=== PATIENT | female | born 1990 | race Caucasian/White ===

== ENCOUNTER 2016-05-23 08:38 | Emergency (ER) | payer MEDICAID, OTHER ==
[~2016-05-23] VITALS: Ht 160 cm; Wt 77.3 kg
[2016-05-23 08:44] VITALS: BP 111/83; RESP 14; O2SAT 96
--- NOTE | 2016-05-23 09:09 | ED.REPORT ---
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 The tenderness began 2 days ago, then last night she felt a bump beginning to form which has been worsening. The pain radiates up into her nasal passages. She denies any other symptoms at this time. Nursing Notes Stated Complaint: PAINFUL BUMP IN MOUTH Chief Complaint: ENT & Mouth Nursing Notes Reviewed: Yes Allergies: Coded Allergies: No Known Allergies (Unverified Allergy, Unknown, 09/24/14) Scheduled Acyclovir (Acyclovir) 400 Mg Tablet Unknown Dose PO BID Penicillin V Potassium (Penicillin V Potassium) 500 Mg Tablet 500 MG PO QID Scheduled PRN Hydrocodone-Acetaminophen 5-325 mg (Hydrocodone-Acetaminophen 5-325 mg) 1 Each Tablet 1 TABLET PO Q4H PRN PRN For Pain General Time Seen by MD: 09:07 Chief Complaint Mouth pain Hx Obtained From: Patient Arrived By: Walk-in Onset Occurred: 2 days ago Symptom Duration: Since onset Quality: Painful Severity: Current: Moderate Severity: Maximum: Severe Recent Healthcare: No recent doctor visit, No recent hospitalization Similar Sx Previous: Yes Past Medical History Past Medical History 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 Physical Exam Initial Vital Signs Vital Signs (First) Date Time Temp Pulse Resp B/P Pulse Ox O2 Delivery O2 Flow Rate FiO2 05/23/16 08:44 101 14 111/83 96 Room Air 05/23/16 09:39 36.6 Initial VS: Reviewed General/Constitutional: Well-developed, Well-nourished Head / Eyes: Atraumatic, Normocephalic, PERRL Respiratory: No respiratory distress Abdomen / GI: No distention Extremities: No swelling Skin: Warm, Dry, No cyanosis Neurologic: Alert, Oriented, Nonfocal Psychiatric: Mood/affect normal, Behavior normal, Normal thought content ENT: Mucous membranes moist, Pharynx NL Left side face behind central incisior erupting tooth posterior to others. Medial to that is an exquisitely tender lump, no drainage. Neck: Atraumatic, Supple Procedures Incision & Drainage Abscess I & D Abscess: Incised and drained a small amount of pus. Time: :21 Procedure Performed by: ED physician Consent / Setup / Site Prep: Consent from patient, Time-out performed, Hand hygiene observed, Stand sterile technique, Standard surgical scrub, Sterile drapes applied Location of Abscess: Medial to erupting tooth which is posterior to central incisor Local Anesthesia: Lidocaine 1% Pus Drained: Small Post-Procedure / Complications: No complications, Condition improved, Tolerated procedure well, Patient stable Re-Eval/Medical Decision Re-Evaluation/Progress : Time of Eval: :21 Patient Status: Condition improved Re-Evaluation/Progress Note: Performed incision and drainage of mouth abscess. Pt condition improved. Discused plan for discharge. Counseled Regarding: Diagnosis, Lab results, Need for follow-up, When/why to return to ED Discharge & Departure Primary Impression: Dental abscess Disposition: Home Discharge Condition All VS Reviewed: Yes Condition: Improved Patient Instructions: Abscess (ED) Additional Instructions: Your emergency room evaluation today included interview, examination, and incision and drainage of the abscess in your mouth. The abscess does not appear to be infected at this time. Take the antibiotic as prescribed. No chew diet for 24 hours. Ibuprofen 800mg every 8 hours as needed for pain- take this with food. Hydrocodone/apap as needed for pain not controlled by ibuprofen. Make sure that you follow up with a dentist soon. Return to ED for fevers, facial swelling or increasing pain. Referrals: NOPCP (PCP) [facility] Attestation Portions of this note were transcribed by Rodney Marc. I, Dr. Graves personally performed the history, physical exam and medical decision-making; I reviewed and confirmed the accuracy of the information in the transcribed note. Signed by : All Maldonado, 05/23/2016 at 0935. Yuan Graves MD May 23, 2016 09:09 RODNEY MARC May 23, 2016 09:16
[2016-05-23] MEDS ORDERED: ACYC400T2 PO (09:17)
[2016-05-23] MEDS ORDERED: HYDR-4003 PO (09:34)
[2016-05-23] MEDS ORDERED: PENI500T PO (09:34)
[2016-05-23 09:39] VITALS: BP 112/78; PULSE 97; RESP 16; O2SAT 97
== END 2016-05-23 09:34 | disposition home or self-care (01) ==
LOC: SED 08:38
DX: K04.7 Periapical abscess without sinus (principal); Z86.19 Personal history of other infectious and parasitic diseases